=== PATIENT | male | born 1975 | race Caucasian/White ===

== ENCOUNTER 2022-01-15 02:35 | Emergency (ER) | payer BC ==
[2022-01-15] MEDS ORDERED: SODIUM CHLORIDE 0.9% 1,000 ML IV ONE (02:57)
[2022-01-15] MEDS ORDERED: ONDANSETRON 4 MG/2 ML VIAL IVP STA (02:58)
[2022-01-15] MEDS ORDERED: KETOROLAC 15 MG/ML 1 ML VIAL IVP STA ×2 (02:58→08:50)
--- NOTE | 2022-01-15 03:04 | ED ---
Abdominal Pain HPI - General Source: patient, RN notes reviewed Mode of arrival: ambulatory Limitations: no limitations - History of Present Illness MD Complaint: abdominal pain <Tulio Storm - Last Filed: 01/15/22 03:57> <Basil Lu - Last Filed: 01/15/22 09:00> - General Chief Complaint: Abdominal Pain Stated Complaint: Rib and back pain Time Seen by Provider: 01/15/22 02:46 - History of Present Illness Initial Comments: This is a pleasant 46-year-old male who presents to the emergency department complaining of abdominal pain. Patient states it started about 1 PM yesterday. Patient states the pain has been constant. He is having a hard time characterizing the pain. However he states in the right upper quadrant although he does feel in his back as well. No chest pain or shortness of breath. No fever or chills. Mild nausea. Patient states she has no change in balance urination but states that his stool was yellow appearance. No headache, no fever or chills, no changes in vision or hearing, no sore throat or difficulty with speech, no neck pain, no chest pain or shortness of breath, no numbness or tingling, no extremity pain, no skin rashes or lesions. Past medical, surgical, social, and family history reviewed. Patient smokes cigarettes. Denies any other significant medical history. Positive family history of diabetes in first-degree relatives. (Tulio Storm) - Related Data Previous Rx's Medication Instructions Recorded Cyclobenzaprine [Flexeril] 10 mg PO TID PRN #12 tablet 01/15/22 Allergies Allergy/AdvReac Type Severity Reaction Status Date / Time No Known Allergies Allergy Verified 01/15/22 02:36 Review of Systems ROS Other: All systems not noted in ROS Statement are negative. <Tulio Storm - Last Filed: 01/15/22 03:57> ROS Other: All systems not noted in ROS Statement are negative. <Basil Lu - Last Filed: 01/15/22 09:00> ROS Statement: Those systems with pertinent positive or pertinent negative responses have been documented in the HPI. Past Medical History Past Medical History: No Reported History History of Any Multi-Drug Resistant Organisms: None Reported Past Surgical History: No Surgical Hx Reported Past Psychological History: No Psychological Hx Reported Smoking Status: Current every day smoker Past Alcohol Use History: Daily, Heavy Past Drug Use History: None Reported <Tulio Storm - Last Filed: 01/15/22 03:57> General Exam Limitations: no limitations General appearance: alert, in no apparent distress, in distress (Mild distress) Head exam: Present: atraumatic, normocephalic, normal inspection Eye exam: Present: normal appearance, PERRL, EOMI. Absent: scleral icterus, conjunctival injection, periorbital swelling ENT exam: Present: normal exam, normal oropharynx, mucous membranes moist, normal external ear exam Neck exam: Present: normal inspection, full ROM. Absent: tenderness, meningismu s, lymphadenopathy Respiratory exam: Present: normal lung sounds bilaterally. Absent: respiratory distress, wheezes, rales, rhonchi, stridor, chest wall tenderness, accessory muscle use Cardiovascular Exam: Present: regular rate, normal rhythm, normal heart sounds. Absent: systolic murmur, diastolic murmur, rubs, gallop, clicks GI/Abdominal exam: Present: soft, tenderness (Right upper quadrant with positive Myers sign), normal bowel sounds. Absent: distended, guarding, rebound, rigid Extremities exam: Present: normal inspection, full ROM, normal capillary refill. Absent: tenderness, pedal edema, joint swelling, calf tenderness Back exam: Present: normal inspection Neurological exam: Present: alert, oriented X3, CN II-XII intact Psychiatric exam: Present: normal affect, normal mood Skin exam: Present: warm, dry, intact, normal color. Absent: rash <Tulio Storm - Last Filed: 01/15/22 03:57> - General Exam Comments Initial Comments: Patient hypertensive at 168/102. Remainder of the vital signs are stable. Appears to be adequately hydrated. Capillary refill less than 2 seconds. No mottling. Cranial nerves II through XII grossly intact. (Tulio Storm) Course Vital Signs 01/15/22 02:37 Temperature 98 F Pulse Rate 82 Respiratory 16 Rate Blood Pressure 168/102 O2 Sat by Pulse 98 Oximetry Medical Decision Making <Tulio Storm - Last Filed: 01/15/22 03:57> - Lab Data Result diagrams: 01/15/22 03:48 01/15/22 03:48 - Radiology Data Radiology results: report reviewed (Chest x-ray, abdominal CAT scan, and ultrasound all negative for acute process) <Basil Lu - Last Filed: 01/15/22 09:00> - Medical Decision Making Patient symptomology most consistent with gallbladder disease. Although other intra-abdominal inflammatory versus infectious etiologies are possible. Does not appear to be consistent with cardiopulmonary disease, however we will get an EKG and troponin. Does not appear to be consistent with pancreatitis although this is still within the differential. Bowel perforation unlikely as the patient has no rebound or percussion tenderness. Patient will be endorsed to the ED attending physician, Dr. Vu, at 4 AM for further evaluation and disposition. Case discussed in detail. (Tulio Storm) Patient reevaluated and resting comfortably at bedside. Patient does have mild discomfort right upper quadrant and right lateral mid back. Discomfort is positional and increases with movements. Patient questions if his back could be causing symptoms. Patient updated on results and need for follow-up. Repeat blood pressure 136/79 (Basil Lu) - Lab Data Lab Results 01/15/22 01/15/22 01/15/22 Range/Units 03:48 03:48 03:48 WBC 12.2 H (3.8-10.6) k/uL RBC 4.95 (4.30-5.90) m/uL Hgb 16.1 (13.0-17.5) gm/dL Hct 47.6 (39.0-53.0) % MCV 96.2 (80.0-100.0) fL MCH 32.6 (25.0-35.0) pg MCHC 33.9 (31.0-37.0) g/dL RDW 12.1 (11.5-15.5) % Plt Count 332 (150-450) k/uL MPV 7.2 Neutrophils % 77 % Lymphocytes % 14 % Monocytes % 5 % Eosinophils % 1 % Basophils % 1 % Neutrophils # 9.4 H (1.3-7.7) k/uL Lymphocytes # 1.8 (1.0-4.8) k/uL Monocytes # 0.6 (0-1.0) k/uL Eosinophils # 0.2 (0-0.7) k/uL Basophils # 0.1 (0-0.2) k/uL Sodium 134 L (137-145) mmol/L Potassium 4.4 (3.5-5.1) mmol/L Chloride 100 (98-107) mmol/L Carbon Dioxide 21 L (22-30) mmol/L Anion Gap 13 mmol/L BUN 10 (9-20) mg/dL Creatinine 0.58 L (0.66-1.25) mg/dL Est GFR (CKD-EPI)AfAm >90 (>60 ml/min/1.73 sqM) Est GFR (CKD-EPI)NonAf >90 (>60 ml/min/1.73 sqM) Glucose 114 H (74-99) mg/dL Plasma Lactic Acid Avery 1.3 (0.7-2.0) mmol/L Calcium 9.7 (8.4-10.2) mg/dL Total Bilirubin 0.7 (0.2-1.3) mg/dL AST 25 (17-59) U/L ALT 25 (4-49) U/L Alkaline Phosphatase 110 (38-126) U/L Troponin I (0.000-0.034) ng/mL Total Protein 7.9 (6.3-8.2) g/dL Albumin 4.8 (3.5-5.0) g/dL Amylase 54 (30-110) U/L Lipase 100 (23-300) U/L Urine Color Urine Appearance (Clear) Urine pH (5.0-8.0) Ur Specific [place] (1.001-1.035) Urine Protein (Negative) Urine Glucose (UA) (Negative) Urine Ketones (Negative) Urine Blood (Negative) Urine Nitrite (Negative) Urine Bilirubin (Negative) Urine Urobilinogen (<2.0) mg/dL Ur Leukocyte Esterase (Negative) 01/15/22 01/15/22 Range/Units 03:48 05:02 WBC (3.8-10.6) k/uL RBC (4.30-5.90) m/uL Hgb (13.0-17.5) gm/dL Hct (39.0-53.0) % MCV (80.0-100.0) fL MCH (25.0-35.0) pg MCHC (31.0-37.0) g/dL RDW (11.5-15.5) % Plt Count (150-450) k/uL MPV Neutrophils % % Lymphocytes % % Monocytes % % Eosinophils % % Basophils % % Neutrophils # (1.3-7.7) k/uL Lymphocytes # (1.0-4.8) k/uL Monocytes # (0-1.0) k/uL Eosinophils # (0-0.7) k/uL Basophils # (0-0.2) k/uL Sodium (137-145) mmol/L Potassium (3.5-5.1) mmol/L Chloride (98-107) mmol/L Carbon Dioxide (22-30) mmol/L Anion Gap mmol/L BUN (9-20) mg/dL Creatinine (0.66-1.25) mg/dL Est GFR (CKD-EPI)AfAm (>60 ml/min/1.73 sqM) Est GFR (CKD-EPI)NonAf (>60 ml/min/1.73 sqM) Glucose (74-99) mg/dL Plasma Lactic Acid Avery (0.7-2.0) mmol/L Calcium (8.4-10.2) mg/dL Total Bilirubin (0.2-1.3) mg/dL AST (17-59) U/L ALT (4-49) U/L Alkaline Phosphatase (38-126) U/L Troponin I <0.012 (0.000-0.034) ng/mL Total Protein (6.3-8.2) g/dL Albumin (3.5-5.0) g/dL Amylase (30-110) U/L Lipase (23-300) U/L Urine Color Yellow Urine Appearance Clear (Clear) Urine pH 6.5 (5.0-8.0) Ur Specific [place] >1.050 H (1.001-1.035) Urine Protein Trace H (Negative) Urine Glucose (UA) Negative (Negative) Urine Ketones Negative (Negative) Urine Blood Negative (Negative) Urine Nitrite Negative (Negative) Urine Bilirubin Negative (Negative) Urine Urobilinogen <2.0 (<2.0) mg/dL Ur Leukocyte Esterase Negative (Negative) - EKG Data EKG Comments: EKG done at 3:37 AM reveals sinus rhythm with possible left atrial enlargement. There is 76. Interval 162 ms. Remainder of the intervals are normal. No acute ST or T-wave changes. Normal axis. Normal QRS morphology. No comparison study. (Fran Storm) Disposition <Tulio Storm - Last Filed: 01/15/22 03:57> Is patient prescribed a controlled substance at d/c from ED?: No Time of Disposition: 08:52 <Basil Lu - Last Filed: 01/15/22 09:00> Clinical Impression: Right upper quadrant abdominal pain, Elevated blood pressure reading Disposition: HOME SELF-CARE Condition: Stable Instructions (If sedation given, give patient instructions): Abdominal Pain (ED) Additional Instructions: Please do follow-up with primary care physician in the next day or 2 for recheck. Return for increased pain, vomiting, fever, worsening or change in symptoms or any other concerns. Prescription for muscle relaxers have been sent to pharmacy. Prescriptions: Cyclobenzaprine [Flexeril] 10 mg PO TID PRN #12 tablet PRN Reason: Pain Referrals: Vipin Perdomo MD [STAFF PHYSICIAN] - 1-2 days
[2022-01-15 04:00] LABS: Basophils # (A) 0.1 k/uL (0-0.2); Basophils % (A) 1 %; Eosinophils # (A) 0.2 k/uL (0-0.7); Eosinophils % (A) 1 %; HCT 47.6 % (39.0-53.0); HGB 16.1 gm/dL (13.0-17.5); Lymphocytes # (A) 1.8 k/uL (1.0-4.8); Lymphocytes % (A) 14 %; MCH 32.6 pg (25.0-35.0); MCHC 33.9 g/dL (31.0-37.0); MCV 96.2 fL (80.0-100.0); Mean Platelet Volume 7.2; Monocytes # (A) 0.6 k/uL (0-1.0); Monocytes % (A) 5 %; Neutrophils # (A) 9.4 k/uL (1.3-7.7); Neutrophils % (A) 77 %; Platelet Count 332 k/uL (150-450); RBC 4.95 m/uL (4.30-5.90); RDW 12.1 % (11.5-15.5); WBC 12.2 k/uL (3.8-10.6)
[2022-01-15 04:17] LABS: ALT 25 U/L (4-49); AST 25 U/L (17-59); African American GFR (CKD) >90 (>60 ml/min/1.73 sqM); Albumin 4.8 g/dL (3.5-5.0); Alkaline Phosphatase 110 U/L (38-126); Amylase 54 U/L (30-110); Anion Gap 13 mmol/L; Blood Urea Nitrogen 10 mg/dL (9-20); Calcium 9.7 mg/dL (8.4-10.2); Carbon Dioxide 21 mmol/L (22-30); Chloride 100 mmol/L (98-107); Glucose 114 mg/dL (74-99); Lipase 100 U/L (23-300); Non-African American GFR(CKD) >90 (>60 ml/min/1.73 sqM); Potassium 4.4 mmol/L (3.5-5.1); Sodium 134 mmol/L (137-145); Total Bilirubin 0.7 mg/dL (0.2-1.3); Total Protein 7.9 g/dL (6.3-8.2)
--- NOTE | 2022-01-15 04:36 | XR ---
EXAMINATION TYPE: XR chest 1V portable DATE OF EXAM: 01/15/2022 COMPARISON: NONE HISTORY: Abdominal pain TECHNIQUE: Single view FINDINGS: Heart and mediastinum are normal. Lungs are clear. Diaphragm is normal. Bony thorax is inta ct. IMPRESSION: Normal chest.
--- NOTE | 2022-01-15 04:48 | CT ---
EXAMINATION TYPE: CT abdomen pelvis w con DATE OF EXAM: 01/15/2022 COMPARISON: None HISTORY: abdominal pain--right side, +Myers's CT DLP: 1899 mGycm Automated exposure control for dose reduction was used. CONTRAST: Performed with IV Contrast, patient injected with 100ml mL of Isovue 300. Images obtained from the diaphragms to the floor the pelvis with IV contrast. Lung bases are clear. No pleural effusion. Heart size is normal. No pericardial effusion. Liver spleen and stomach pancreas and gallbladder appear intact. The bile ducts are not dilated. There is no adrenal mass. Kidneys show satisfactory contrast opacification. There is no hydronephrosi s. Ureters are not dilated. Appendix is posterior and appears normal. There is no mesenteric edema. N o ascites or free air. No sign of a bowel obstruction. Ureters are not dilated. No retroperitoneal ad enopathy. Bladder distends smoothly. No inguinal hernia. No free fluid in the pelvis. No pelvic mass. The lumbar vertebrae have normal alignment. There is disc space narrowing at L5-S1. No compression fr acture. Bony pelvis is intact. Hip joints are intact. IMPRESSION: Normal CT scan abdomen and pelvis. Normal appendix.
[2022-01-15 05:24] LABS: Appearance,Urine Clear (Clear); Bilirubin,Urine Negative (Negative); Blood,Urine Negative (Negative); Color,Urine Yellow; Glucose,Urine (UA) Negative (Negative); Ketones,Urine Negative (Negative); Leukocyte Esterase,Urine Negative (Negative); Nitrite,Urine Negative (Negative); PH, Urine 6.5 (5.0-8.0); Protein,Urine Trace (Negative); Urobilinogen,Urine <2.0 mg/dL (<2.0)
[2022-01-15 05:41] LABS: Specific Gravity,Urine >1.050 (1.001-1.035)
--- NOTE | 2022-01-15 08:31 | US ---
EXAMINATION TYPE: US gallbladder DATE OF EXAM: 01/15/2022 COMPARISON: CT 01/15/2022` CLINICAL HISTORY: Right upper quadrant abdomen pain TECHNIQUE: Multiple sonographic images of the right upper quadrant are obtained. FINDINGS: EXAM MEASUREMENTS: Liver Length: 15.3 cm Gallbladder Wall: 0.22cm CBD: 0.34cm Right Kidney: 10.8 x 5.7 x 5.8cm Pancreas: Obscured by bowel gas Liver: Heterogeneous Gallbladder: No stones seen Evidence for sonographic Myers's sign: Yes CBD: wnl Right Kidney: wnl IMPRESSION: Correlate for hepatic steatosis.
[2022-01-15] MEDS ORDERED: FAMOTIDINE 20 MG/2 ML VIAL IV STA (08:50)
[2022-01-15] MEDS ORDERED: ACET/COD 300 MG/30 MG STARTER PACK 6 TAB BTL PO STA (08:51)
[2022-01-15 09:31] VITALS: BP 128/83; PULSE 88; RESP 18; TEMP 97.2
== END 2022-01-15 09:28 | disposition home or self-care (01) ==
LOC: EC 02:35
DX: R10.11 Right upper quadrant pain (principal); R03.0 Elevated blood-pressure reading, without diagnosis of hypertension; F17.200 Nicotine dependence, unspecified, uncomplicated
CPT/HCPCS: 36415; 93005; 80053; 82150; 83605; 83690; 84484; 85025; 81003; 71045; 76705; 74177; 99284; 96374; 96375 ×2; 96376; 96361; J2405; J1885; Q9967

== ENCOUNTER 2022-10-13 02:35 | Emergency (ER) | payer BC ==
--- NOTE | 2022-10-13 03:22 | ED ---
Lower Extremity Injury HPI - General Source: patient, RN notes reviewed, old records reviewed Mode of arrival: ambulatory Limitations: no limitations - History of Present Illness MD Complaint: other (pain right thigh) -: hour(s) Injury: Thigh: Right Place: home, work Severity: severe Severity scale (1-10): 10 Worsens With: nothing Associated Symptoms: swelling <Vinicius Vu - Last Filed: 10/13/22 06:50> <Dari Meier - Last Filed: 10/13/22 08:18> - General Chief Complaint: Extremity Injury, Lower Stated Complaint: Right leg pain/burning Time Seen by Provider: 10/13/22 03:10 - History of Present Illness Initial Comments: this is a 46-year-old male presents today for evaluation. He presents today for evaluation of severe pain severe pain down the right leg patient has severe pain and tenderness to the skin of his anterior right thigh. Patient is concern for blood clot. (Vinicius Vu) - Related Data Previous Rx's Medication Instructions Recorded Cyclobenzaprine [Flexeril] 10 mg PO TID PRN #12 tablet 01/15/22 Allergies Allergy/AdvReac Type Severity Reaction Status Date / Time No Known Allergies Allergy Verified 01/15/22 02:36 Review of Systems ROS Other: All systems not noted in ROS Statement are negative. <Vinicius Vu - Last Filed: 10/13/22 06:50> ROS Other: All systems not noted in ROS Statement are negative. <Dari Meier - Last Filed: 10/13/22 08:18> ROS Statement: Those systems with pertinent positive or pertinent negative responses have been documented in the HPI. Past Medical History Past Medical History: No Reported History History of Any Multi-Drug Resistant Organisms: None Reported Past Surgical History: No Surgical Hx Reported Past Psychological History: No Psychological Hx Reported Smoking Status: Current every day smoker Past Alcohol Use History: Daily, Heavy Past Drug Use History: None Reported <Vinicius Vu - Last Filed: 10/13/22 06:50> General Exam Limitations: no limitations General appearance: alert, in no apparent distress Head exam: Present: atraumatic, normocephalic, normal inspection Eye exam: Present: normal appearance, PERRL, EOMI. Absent: scleral icterus, conjunctival injection, periorbital swelling ENT exam: Present: normal exam, mucous membranes moist Neck exam: Present: normal inspection. Absent: tenderness, meningismus, lymphadenopathy Respiratory exam: Present: normal lung sounds bilaterally. Absent: respiratory distress, wheezes, rales, rhonchi, stridor Cardiovascular Exam: Present: regular rate, normal rhythm, normal heart sounds. Absent: systolic murmur, diastolic murmur, rubs, gallop, clicks GI/Abdominal exam: Present: soft, normal bowel sounds. Absent: distended, tenderness, guarding, rebound, rigid Extremities exam: Present: normal inspection, full ROM, normal capillary refill. Absent: tenderness, pedal edema, joint swelling, calf tenderness Back exam: Present: normal inspection Neurological exam: Present: alert, oriented X3, CN II-XII intact Psychiatric exam: Present: normal affect, normal mood Skin exam: Present: warm, dry, intact, normal color. Absent: rash <Vinicius Vu - Last Filed: 10/13/22 06:50> Course <Vinicius Vu - Last Filed: 10/13/22 06:50> Vital Signs 10/13/22 02:51 Temperature 98.4 F Pulse Rate 54 L Respiratory 18 Rate Blood Pressure 163/101 O2 Sat by Pulse 97 Oximetry - Reevaluation(s) Reevaluation #1: 10/13/22 03:42 medical records reviewed (Vinicius Vu) Reevaluation #2: 10/13/22 06:50 patient presents today and still continues withfor similar pain in the right thigh (Vinicius Vu) Reevaluation #3: 10/13/22 06:51 patient informed of results and questions are answered (Vinicius Vu) Reevaluation #4: 10/13/22 03:42 Was pt. sent in by a medical professional or institution? @ -no Did you speak to anyone other than the patient for history? @ -no Did you review nursing and triage notes? @ -agree Were old charts reviewed? @ -no Differential Diagnosis? @ -prior EKG interpreted by me (3pts min.)? @ -yes X-rays interpreted by me (1pt min.)? @ -no CT interpreted by me (1pt min.)? @ -no U/S interpreted by me (1pt. min.)? @ -no What testing was considered but not performed? (CT, X-rays, U/S, labs)? Why? @ -no What meds were considered but not given? Why? @ -no Did you discuss the management of the patient with other professionals? @ -no Did you reconcile home meds? @ -no Was smoking cessation discussed for >3mins.? @ -no Was critical care preformed (if so, how long)? @ -no Were there social determinants of health that impacted care today? How? (Homelessness, low income, unemployed, alcoholism, drug addiction, transportation, low edu. Level, literacy, decrease access to med. care, snf, rehab)? @ -no Was there de-escalation of care discussed even if they declined? (Discuss DNR or withdrawal of care, Hospice)? @ -no What co-morbidities impacted this encounter? (DM, HTN, Smoking, COPD, CAD, Cancer, CVA, Hep., AIDS, mental health diagnosis, sleep apnea, morbid obesity)? @ -none Was patient admitted / discharged? @ - Undiagnosed new problem with uncertain prognosis? @ -no Drug Therapy requiring intensive monitoring for toxicity (Heparin, Nitro, Insulin, Cardizem)? @ -no Were any procedures done? @ -no Diagnosis/symptom? @ - Acute, or Chronic, or Acute on Chronic? @ -no Uncomplicated (without systemic symptoms) or Complicated (systemic symptoms)? @ -uncomplicated Side effects of treatment? @ -no Exacerbation, Progression, or Severe Exacerbation] @ -no Poses a threat to life or bodily function? @ -no (Vinicius Vu) Medical Decision Making - Lab Data Result diagrams: 10/13/22 03:32 10/13/22 03:32 - Radiology Data Radiology results: report reviewed (CT LS-spine is negative for acute disease), image reviewed <Vinicius Vu - Last Filed: 10/13/22 06:50> - Lab Data Result diagrams: 10/13/22 03:32 10/13/22 03:32 <Dari Meier - Last Filed: 10/13/22 08:18> - Medical Decision Making 46 male DEL with right thigh pain. No significant back issue injury or cause of pain noted, (Vinicius Vu) - Lab Data Lab Results 10/13/22 10/13/22 10/13/22 Range/Units 03:32 03:32 03:32 WBC 7.7 (3.8-10.6) k/uL RBC 4.80 (4.30-5.90) m/uL Hgb 15.9 (13.0-17.5) gm/dL Hct 47.1 (39.0-53.0) % MCV 98.1 (80.0-100.0) fL MCH 33.1 (25.0-35.0) pg MCHC 33.7 (31.0-37.0) g/dL RDW 12.0 (11.5-15.5) % Plt Count 315 (150-450) k/uL MPV 6.6 Neutrophils % 68 % Lymphocytes % 23 % Monocytes % 5 % Eosinophils % 3 % Basophils % 1 % Neutrophils # 5.3 (1.3-7.7) k/uL Lymphocytes # 1.8 (1.0-4.8) k/uL Monocytes # 0.4 (0-1.0) k/uL Eosinophils # 0.2 (0-0.7) k/uL Basophils # 0.1 (0-0.2) k/uL D-Dimer 0.26 (<0.60) mg/L FEU Sodium 135 L (137-145) mmol/L Potassium 4.0 (3.5-5.1) mmol/L Chloride 103 (98-107) mmol/L Carbon Dioxide 25 (22-30) mmol/L Anion Gap 7 mmol/L BUN 13 (9-20) mg/dL Creatinine 0.62 L (0.66-1.25) mg/dL Est GFR (CKD-EPI)AfAm >90 (>60 ml/min/1.73 sqM) Est GFR (CKD-EPI)NonAf >90 (>60 ml/min/1.73 sqM) Glucose 114 H (74-99) mg/dL Calcium 9.3 (8.4-10.2) mg/dL Phosphorus 3.7 (2.5-4.5) mg/dL Magnesium 1.7 (1.6-2.3) mg/dL Total Bilirubin 0.5 (0.2-1.3) mg/dL AST 27 (17-59) U/L ALT 28 (4-49) U/L Alkaline Phosphatase 93 (38-126) U/L Total Protein 7.5 (6.3-8.2) g/dL Albumin 4.3 (3.5-5.0) g/dL Disposition Is patient prescribed a controlled substance at d/c from ED?: No <Vinicius Vu - Last Filed: 10/13/22 06:50> Is patient prescribed a controlled substance at d/c from ED?: No Time of Disposition: 08:18 <Dari Meier - Last Filed: 10/13/22 08:18> Clinical Impression: Right thigh pain Disposition: HOME SELF-CARE Condition: Good Referrals: None,Stated [Primary Care Provider] - 1-2 days
[2022-10-13] MEDS ORDERED: KETOROLAC 15 MG/ML 1 ML VIAL IVP STA (03:25)
[2022-10-13 03:53] LABS: Basophils # (A) 0.1 k/uL (0-0.2); Basophils % (A) 1 %; Eosinophils # (A) 0.2 k/uL (0-0.7); Eosinophils % (A) 3 %; HCT 47.1 % (39.0-53.0); HGB 15.9 gm/dL (13.0-17.5); Lymphocytes # (A) 1.8 k/uL (1.0-4.8); Lymphocytes % (A) 23 %; MCH 33.1 pg (25.0-35.0); MCHC 33.7 g/dL (31.0-37.0); MCV 98.1 fL (80.0-100.0); Mean Platelet Volume 6.6; Monocytes # (A) 0.4 k/uL (0-1.0); Monocytes % (A) 5 %; Neutrophils # (A) 5.3 k/uL (1.3-7.7); Neutrophils % (A) 68 %; Platelet Count 315 k/uL (150-450); WBC 7.7 k/uL (3.8-10.6)
[2022-10-13 04:03] LABS: ALT 28 U/L (4-49); AST 27 U/L (17-59); African American GFR (CKD) >90 (>60 ml/min/1.73 sqM); Albumin 4.3 g/dL (3.5-5.0); Alkaline Phosphatase 93 U/L (38-126); Anion Gap 7 mmol/L; Blood Urea Nitrogen 13 mg/dL (9-20); Calcium 9.3 mg/dL (8.4-10.2); Carbon Dioxide 25 mmol/L (22-30); Chloride 103 mmol/L (98-107); Glucose 114 mg/dL (74-99); Magnesium 1.7 mg/dL (1.6-2.3); Non-African American GFR(CKD) >90 (>60 ml/min/1.73 sqM); Phosphorus 3.7 mg/dL (2.5-4.5); Sodium 135 mmol/L (137-145); Total Bilirubin 0.5 mg/dL (0.2-1.3); Total Protein 7.5 g/dL (6.3-8.2)
--- NOTE | 2022-10-13 05:32 | CT ---
EXAMINATION TYPE: CT lumbar spine wo con DATE OF EXAM: 10/13/2022 3:50 AM COMPARISON: CT abdomen and pelvis January 15, 2022 HISTORY: Back pain causing upper leg cramping and burning sensation for [address] DLP: 1670 mGycm Automated exposure control for dose reduction was used. Unenhanced CT of the lumbar spine was performed. Bone and soft tissue window settings are submitted as well as coronal and sagittal reconstructions. There are 5 lumbar type vertebra are redemonstrated. Lumbar spine shows stable and satisfactory align ment. No acute displaced fracture. Stable mild disc space narrowing at L4-L5 and L5-S1 levels. Verteb ral body heights are maintained. Spinal canal is grossly preserved. Review of axial images shows T12-L1 through the L3-L4 levels to remain within normal limits. Axial images at L4-L5 levels show [id number] broad disc bulge effacing anterior thecal sac henry g with mild to moderate facet arthropathy and ligamentum flavum hypertrophy. Bilateral neural foramin a remain grossly patent. Axial images at L5-S1 level show mild facet arthropathy bilaterally. There is small right paracentral disc protrusion. Spinal canal is grossly preserved. Bilateral neural foraminal narrowing is also pre sent at this level. Paraspinal muscle bulk is maintained. IMPRESSION: Some multilevel degenerative change in the lower lumbar spine as detailed above. No acute findings are evident. MRI evaluation noted more sensitive.
--- NOTE | 2022-10-13 07:53 | US ---
EXAMINATION TYPE: US venous doppler duplex LE RT DATE OF EXAM: 10/13/2022 7:32 AM COMPARISON: NONE CLINICAL INDICATION: Male, 46 years old with history of pain,dvt; right leg pain and burning, edema f or 4-5 days SIDE PERFORMED: right TECHNIQUE: The lower extremity deep venous system is examined utilizing real time linear array sonog katarzyna with graded compression, doppler sonography and color-flow sonography. VESSELS IMAGED: Common Femoral Vein Deep Femoral Vein Greater Saphenous Vein * Femoral Vein Popliteal Vein Small Saphenous Vein * Proximal Calf Veins (* superficial vessels) Right Leg: no evidence of DVT Grayscale, color doppler, spectral doppler imaging performed of the deep veins of the right lower ext remity. There is normal flow, compressibility, vascular waveforms. IMPRESSION: No ultrasound evidence for acute DVT in the right lower extremity.
[2022-10-13 08:35] VITALS: BP 155/91; PULSE 57; RESP 16; TEMP 97.9
== END 2022-10-13 08:35 | disposition home or self-care (01) ==
LOC: EC 02:35
DX: M79.651 Pain in right thigh (principal); F17.200 Nicotine dependence, unspecified, uncomplicated
CPT/HCPCS: 36415; 85379; 80053; 83735; 84100; 85025; 93971; 72131; 99284; 96374; J1885

== ENCOUNTER 2023-04-19 21:10 | Emergency (ER) | payer BC ==
[2023-04-19 21:38] VITALS: TEMP 97.9
[2023-04-19] MEDS ORDERED: FLUORESCEIN STRIPS 1 MG STRIP RIGHT EYE ONE (21:49)
[2023-04-19] MEDS ORDERED: PROPARACAINE 0.5% OPHTH DROPS 15 ML BTL RIGHT EYE STA (21:49)
[2023-04-19] MEDS ORDERED: TOBRAMYCIN 0.3% OPHTH DROPS 5 ML BTL RIGHT EYE STA (22:41)
[2023-04-19] MEDS ORDERED: DIPH,PERTUS(ACELL)TETVAC-LF 0.5 ML VIAL IM ONE (22:48)
--- NOTE | 2023-04-19 22:48 | ED ---
Eye Problem HPI - General Chief complaint: Eye Problems Stated complaint: right eye pain Source: patient Mode of arrival: ambulatory Limitations: no limitations - History of Present Illness Initial comments: 47-year-old male presenting to the ED with a chief complaint of eye problem. Patient states at approximately 6 PM today was cleaning the yard. States during this a tree recoiled back and smacked him in his right eye. Now notes some blurry vision and pain of the right eye. No other injuries at this time. Tetanus status unknown. No other complaints. - Related Data Previous Rx's Medication Instructions Recorded Cyclobenzaprine [Flexeril] 10 mg PO TID PRN #12 tablet 01/15/22 Allergies Allergy/AdvReac Type Severity Reaction Status Date / Time No Known Allergies Allergy Verified 04/19/23 21:19 Review of Systems ROS Statement: Those systems with pertinent positive or pertinent negative responses have been documented in the HPI. ROS Other: All systems not noted in ROS Statement are negative. Past Medical History Past Medical History: No Reported History History of Any Multi-Drug Resistant Organisms: None Reported Past Surgical History: No Surgical Hx Reported Past Psychological History: No Psychological Hx Reported Smoking Status: Current every day smoker Past Alcohol Use History: Daily, Heavy Past Drug Use History: None Reported General Exam Limitations: no limitations General appearance: alert, in no apparent distress Eye exam: Present: normal appearance, other (Skin exam of the eyes shows uptake consistent with corneal abrasion. Visual acuity of the right eye 20/200.) Neck exam: Present: normal inspection Respiratory exam: Present: normal lung sounds bilaterally Cardiovascular Exam: Present: regular rate, normal rhythm Course Vital Signs 04/19/23 21:17 Temperature 97.9 F Pulse Rate 84 Respiratory 16 Rate Blood Pressure 152/87 O2 Sat by Pulse 98 Oximetry Medical Decision Making - Medical Decision Making Was pt. sent in by a medical professional or institution (, PA, CONSUMER SAFETY INSPECTOR, urgent care, hospital, or detention...) When possible be specific @ -No Did you speak to anyone other than the patient for history (EMS, parent, family, police, friend...)? What history was obtained from this source @ -No Did you review nursing and triage notes (agree or disagree)? Why? @ -I reviewed and agree with nursing and triage notes Were old charts reviewed (outside hosp., previous admission, EMS record, old EKG, old radiological studies, urgent care reports/EKG's, detention records)? Report findings @ -No old charts were reviewed Differential Diagnosis (chest pain, altered mental status, abdominal pain women, abdominal pain men, vaginal bleeding, weakness, fever, dyspnea, syncope, headache, dizziness, GI bleed, back pain, seizure, CVA, palpatations, mental health, musculoskeletal)? @ -Hyphema, retina tear, corneal laceration. This is not meant to be an all- inclusive list. EKG interpreted by me (3pts min.). @ -None X-rays interpreted by me (1pt min.). @ -None done CT interpreted by me (1pt min.). @ -None done U/S interpreted by me (1pt. min.). @ -None done What testing was considered but not performed or refused? (CT, X-rays, U/S, labs)? Why? @ -None What meds were considered but not given or refused? Why? @ -None Did you discuss the management of the patient with other professionals (professionals i.e. , PA, CONSUMER SAFETY INSPECTOR, lab, RT, psych nurse, health and social care teacher, commutator presser, teacher, sustainability officer, high risk case manager)? Give summary @ -No Was smoking cessation discussed for >3mins.? @ -No Was critical care preformed (if so, how long)? @ -No Were there social determinants of health that impacted care today? How? (Homelessness, low income, unemployed, alcoholism, drug addiction, transportation, low edu. Level, literacy, decrease access to med. care, [facility], rehab)? @ -No Was there de-escalation of care discussed even if they declined (Discuss DNR or withdrawal of care, Hospice)? DNR status @ -No What co-morbidities impacted this encounter? (DM, HTN, Smoking, COPD, CAD, Cancer, CVA, ARF, Chemo, Hep., AIDS, mental health diagnosis, sleep apnea, morbid obesity)? @ -None Was patient admitted / discharged? Hospital course, mention meds given and route, prescriptions, significant lab abnormalities, going to OR and other pertinent info. @ -Discharge 47-year-old male presenting to the ED with right eye injury after being hit by a tree branch. Exam did show findings consistent with corneal abrasion. Patient provided tobramycin in the ED and provided bottle for use at home. Discharged home in stable condition with referral to see ophthalmology. Discussed return precautions with patient who verbalizes agreement. Tetanus updated. Undiagnosed new problem with uncertain prognosis? @ -No Drug Therapy requiring intensive monitoring for toxicity (Heparin, Nitro, Insulin, Cardizem)? @ -No Were any procedures done? @ -No Diagnosis/symptom? @ -Corneal abrasion Acute, or Chronic, or Acute on Chronic? @ -Acute Uncomplicated (without systemic symptoms) or Complicated (systemic symptoms)? @ -Uncomplicated Side effects of treatment? @ -No Exacerbation, Progression, or Severe Exacerbation? @ -No Poses a threat to life or bodily function? How? (Chest pain, [place], VT, pneumonia, PE, COPD, DKA, ARF, appy, cholecystitis, CVA, Diverticulitis, Homicidal, Suicidal, threat to staff... and all critical care pts) @ -No Disposition Clinical Impression: Corneal abrasion Disposition: HOME SELF-CARE Condition: Good Instructions (If sedation given, give patient instructions): Corneal Abrasion (ED) Additional Instructions: Please return to the Emergency Department if symptoms worsen or any other concerns. For Tobramycin eyedrops - 2 drops in right eye every 4 hours until improvement (5-10 days) Is patient prescribed a controlled substance at d/c from ED?: No Referrals: None,Stated [Primary Care Provider] - 1-2 days Wes Daily MD [STAFF PHYSICIAN] - 1-2 days Time of Disposition: 22:47
[2023-04-19 23:14] VITALS: BP 149/91; PULSE 69; RESP 18
== END 2023-04-19 23:05 | disposition home or self-care (01) ==
LOC: EC 21:10
DX: S05.01XA Injury of conjunctiva and corneal abrasion without foreign body, right eye, initial encounter (principal); F17.200 Nicotine dependence, unspecified, uncomplicated; Z23 Encounter for immunization; W22.8XXA Striking against or struck by other objects, initial encounter
CPT/HCPCS: 90471; 90715; 99283